=== PATIENT | male | born 1985 | race African-American/Black ===

== ENCOUNTER 2025-03-25 01:18 | Emergency (ER) | payer SELFPAY ==
[2025-03-25 02:10] LABS: #Basophils Less than 0.03 10x3/uL (0.0-0.2); #Eosinophils 0.16 10x3/uL (0.0-0.5); #Monocytes 0.56 10x3/uL (0.0-1.1); #Neutrophils 4.44 10x3/uL (1.5-8.4); %Basophils 0.1 % (0.0-2.0); %Eosinophils 2.3 % (0.0-6.0); %Lymphocytes 25.5 % (18.0-47.0); %Monocytes 8.0 % (0.0-10.0); %Neutrophils 63.8 % (40.0-75.0); Hematocrit 43.6 % (38.8-50.0); Hemoglobin 15.4 g/dL (13.5-17.5); Mean Corpuscular Hemoglobin 31.8 pg (27.0-33.0); Mean Corpuscular Volume 90.1 fL (81.2-95.1); Platelet Count 189 10x3/uL (150-450); Red Blood Cell (RBC) Count 4.84 10x6/uL (4.32-5.72); White Blood Cell (WBC) Count 6.97 10x3/uL (3.5-10.5)
[2025-03-25 02:25] LABS: ALT (SGPT) 20 U/L (Less than 45); AST (SGOT) 26 U/L (11-34); Albumin 4.3 g/dL (3.1-4.5); Alkaline Phosphatase 58 U/L (40-110); Anion Gap 16 mmol/L (10-20); BUN (Urea Nitrogen) 16 mg/dL (8.9-20.6); Bilirubin, Total 0.4 mg/dL (0.3-1.2); Calc. Creatinine Clearance 0 mL/min (70-130); Calcium 9.5 mg/dL (7.8-10.44); Carbon Dioxide 23 mmol/L (22-29); Chloride 102 mmol/L (98-107); Globulin 3.3 g/dL (2.4-3.5); Glucose 93 mg/dL (70-105); Potassium 3.9 mmol/L (3.5-5.1); Sodium 137 mmol/L (136-145)
== END 2025-03-25 04:44 | disposition home or self-care (01) ==
LOC: CSHERS 01:18
DX: R06.6 Hiccough (principal); R74.8 Abnormal levels of other serum enzymes; I11.0 Hypertensive heart disease with heart failure; I50.9 Heart failure, unspecified; Z79.899 Other long term (current) drug therapy
CPT/HCPCS: 36415; 71045; 80053; 85025; 96365; J3230; Q0161